=== PATIENT | male | born 1975 | race Caucasian/White ===

== ENCOUNTER 2018-08-01 09:09 | Emergency (ER) | payer OTHER ==
[~2018-08-01] VITALS: Ht 172 cm; Wt 88.5 kg
[2018-08-01] MEDS ORDERED: PENICILLIN-VK500 MG PO (09:55)
[2018-08-01] MEDS ORDERED: Motrin,Rufen800 MG PO (09:55)
[2018-08-01] MEDS ORDERED: CHANTIX1 M1 PO (09:55)
[2018-08-01] MEDS ORDERED: TYLENOL325 M1 PO (09:55)
== END 2018-08-01 09:57 | disposition home or self-care (01) ==
LOC: ED 09:09
DX: K02.9 Dental caries, unspecified (principal); Z91.040 Latex allergy status